=== PATIENT | female | born 1990 | race African-American/Black ===

== ENCOUNTER 2018-07-14 08:46 | Emergency (ER) | payer BC ==
[2018-07-14] MEDS ORDERED: Sodium Chloride 0.9% 1,000 ML IV ONE ×2 (09:45→10:35)
[2018-07-14] MEDS ORDERED: Sodium Chloride 0.9% 10 ML Syringe FLUSH PRN (10:35)
[2018-07-14] MEDS ORDERED: Promethazine 25 MG in Sodium Chloride 0.9% 50 ML IV ONE (10:36)
--- NOTE | 2018-07-14 10:38 | EDM.PDOC ---
ED HPI GENERAL MEDICAL PROBLEM - General Chief Complaint: Gastrointestinal Problem Stated Complaint: PREG AND VOMITING SENT BY [facility] Time Seen by Provider: 07/14/18 10:28 Source of Information: Reports: Patient History Limitations: Reports: No Limitations - History of Present Illness INITIAL COMMENTS - FREE TEXT/NARRATIVE: 28-year-old female is sent over from the clinic for fluids. Patient is approximately 10 weeks . She is a . Last menstrual period was April 23, 2018. Estimated date of delivery is January 18, 2019. She reports that she has been sick since finding out she has been . She is on what sounds like Diclegis. She is also tried Zofran but did not felt that this helped. Her MEDICAL STAFF SERVICES COORDINATOR provider is Dr. Mora. Last visit with Dr. Mora was about 6 days ago. Reports no complications with this thus far. Presented to the infusion center today but due to their busy schedule a were unable to give her fluids and sent her here for fluids. She reports weakness and dizziness. She denies any fevers, diarrhea, pelvic pain or abdominal pain or any vaginal bleeding. She reports feeling nauseous and vomited twice today. She is orthostatic upon arrival to the ED. - Related Data Allergies Allergy/AdvReac Type Severity Reaction Status Date / Time No Known Allergies Allergy Verified 07/14/18 09:18 Home Meds: Home Meds Ondansetron [Zofran ODT] 4 mg PO ASDIRECTED PRN 07/14/18 [History] Vitamin B Complex 1 tab PO DAILY 07/14/18 [History] Past Medical History MEDICAL STAFF SERVICES COORDINATOR History: Reports: Social & Family History - Tobacco Use Smoking Status *Q: Never Smoker - Caffeine Use Caffeine Use: Reports: None - Recreational Drug Use Recreational Drug Use: No ED ROS GENERAL - Review of Systems Review Of Systems: See Below Constitutional: Denies: Fever, Chills Respiratory: Denies: Cough GI/Abdominal: Reports: Nausea, Vomiting. Denies: Abdominal Pain, Diarrhea : Reports: No Symptoms, Other (no vaginal bleeding ). Denies: Pain ED EXAM - Physical Exam Exam: See Below Exam Limited By: No Limitations General Appearance: Alert, WD/WN, No Apparent Distress Respiratory/Chest: No Respiratory Distress, Lungs Clear, Normal Breath Sounds Cardiovascular: Normal Peripheral Pulses, No Murmur, Tachycardia GI/Abdominal Exam: Soft, Non-Tender Neurological: Alert, Oriented, Normal Cognition Psychiatric: Normal Affect, Normal Mood Skin Exam: Warm, Dry, Normal Color Course - Vital Signs Last Recorded V/S: Last Vital Signs Temp 98.4 F 07/14/18 09:12 Pulse 123 H 07/14/18 09:12 Resp 13 07/14/18 09:12 BP 105/93 H 07/14/18 09:12 Pulse Ox 100 07/14/18 09:12 Orthostatic Blood Pressure [ 122/73 Standing] Orthostatic Blood Pressure [ 123/92 Supine] - Orders/Labs/Meds Orders: Active Orders 24 hr Category Date Time Status Orthostatic Vital Signs [RC] ASDIRECTED Care 07/14/18 10:35 Active Peripheral IV Care [RC] . DIRECTED Care 07/14/18 10:35 Active Peripheral IV Insertion Adult [OM.PC] Routine Oth 07/14/18 10:35 Ordered Labs: Laboratory Tests 07/14/18 Range/Units 12:19 Urine Color Yellow (Yellow) Urine Appearance Clear (Clear) Urine pH 6.0 (5.0-8.0) Ur Specific [place] 1.015 (1.005-1.030) Urine Protein Trace H (Negative) Urine Glucose (UA) Negative (Negative) Urine Ketones 1+ H (Negative) Urine Occult Blood Trace-lysed H (Negative) Urine Nitrite Negative (Negative) Urine Bilirubin Negative (Negative) Urine Urobilinogen 1.0 (0.2-1.0) Ur Leukocyte Esterase Negative (Negative) Urine RBC 0-5 (0-5) /hpf Urine WBC 0-5 (0-5) /hpf Ur Epithelial Cells 0-5 (0-5) /hpf Urine Bacteria Few (FEW) /hpf Urine Mucus Many H (FEW) /hpf Meds: Medications Discontinued Medications Generic Name Dose Route Start Last Admin Trade Name Freq PRN Reason Stop Dose Admin Sodium Chloride 1,000 mls @ 999 mls/hr 07/14/18 09:45 07/14/18 09:46 Normal Saline IV 07/14/18 10:45 999 mls/hr ONETIME ONE Administration Sodium Chloride 1,000 mls @ 999 mls/hr 07/14/18 10:35 07/14/18 10:45 Normal Saline IV 07/14/18 11:35 999 mls/hr ONETIME ONE Administration Promethazine HCl 25 mg/ Sodium 51 mls @ 100 mls/hr 07/14/18 10:36 07/14/18 10 :45 Chloride IV 07/14/18 11:06 100 mls/hr ONETIME ONE Administration Sodium Chloride 10 ml 07/14/18 10:35 07/14/18 10:47 Saline Flush FLUSH 10 ml ASDIRECTED PRN Administration Keep Vein Open - Re-Assessments/Exams Free Text/Narrative Re-Assessment/Exam: 07/14/18 13:07 Checked on the patient. She is feeling better. Urine results reviewed. I will prescribe her some topical phenergran. Sounds like she is on Dicelgis and has been prescribed Zofran. We will try her some topical phenergran. Discharge instructions as documented. Departure - Departure Time of Disposition: 13:07 Disposition: Home, Self-Care 01 Condition: Good Clinical Impression: Hyperemesis gravidarum - Discharge Information *PRESCRIPTION DRUG MONITORING PROGRAM REVIEWED*: No *COPY OF PRESCRIPTION DRUG MONITORING REPORT IN PATIENT MICHAEL: No Instructions: Hyperemesis Gravidarum Referrals: Miriam Mora MD [Primary Care Provider] - Forms: ED Department Discharge Additional Instructions: Rx for topical phenergran 50mg/ml sig: apply 25mg 0.5mls topcially to wrist q4- 6 hours prn nausea #10 mls written Continue on your current medications as prescribed by your MEDICAL STAFF SERVICES COORDINATOR. May use the topical Phenergan as prescribed. Apply 25 mg or 0.5 mils to the wrist every 4-6 hours as needed for nausea. This medication will need to be compounded at [facility] pharmacy. Follow-up MEDICAL STAFF SERVICES COORDINATOR within the next 2 weeks for recheck of your symptoms. Recommend clear fluids and bland foods. [place] foods include bread, rice, applesauce, toast, egg whites, yogurt, bananas, etc. Make sure you're taking a vitamin. Position to the ER if your symptoms change or worsen. - My Orders Last 24 Hours: My Active Orders 07/14/18 10:35 Orthostatic Vital Signs [RC] ASDIRECTED Peripheral IV Care [RC] . DIRECTED Peripheral IV Insertion Adult [OM.PC] Routine - Assessment/Plan Last 24 Hours: My Active Orders 07/14/18 10:35 Orthostatic Vital Signs [RC] ASDIRECTED Peripheral IV Care [RC] . DIRECTED Peripheral IV Insertion Adult [OM.PC] Routine
== END 2018-07-14 13:45 | disposition home or self-care (01) ==
LOC: JD.ED 08:46
DX: O21.0 Mild hyperemesis gravidarum (principal); Z3A.10 10 weeks gestation of pregnancy; Z79.899 Other long term (current) drug therapy
CPT/HCPCS: 81001; 96361; 96365; 99284; J2550; J7040; J7050; 99283